=== PATIENT | female | born 1960 | race Caucasian/White ===

== ENCOUNTER → 2019-10-06 11:13 | Outpatient (BNVA) | payer MEDICARE, MEDICAID, SELFPAY | PROVIDERS: Family Provider Internal Medicine Medical Oncology; PCP Registered Nurse; Visit Provider Registered Nurse | DX: E03.9 Hypothyroidism, unspecified (principal); E78.5 Hyperlipidemia, unspecified; B37.2 Candidiasis of skin and nail; Z79.1 Long term (current) use of non-steroidal anti-inflammatories (NSAID); J41.0 Simple chronic bronchitis | CPT/HCPCS: 80053; 80061; 84443; 85025 ==

== ENCOUNTER → 2020-04-08 09:36 | Outpatient (BNVA) | payer MEDICARE, MEDICAID, SELFPAY | PROVIDERS: Family Provider Internal Medicine Medical Oncology; PCP Registered Nurse; Visit Provider Registered Nurse | DX: Z85.44 Personal history of malignant neoplasm of other female genital organs (principal); E03.9 Hypothyroidism, unspecified | CPT/HCPCS: 80053; 84443 ==

== ENCOUNTER 2020-10-15 18:23 | Emergency (ER) | payer MEDICARE, MEDICAID, SELFPAY ==
[2020-10-15 18:57] VITALS: BP 135/84; PULSE 81; RESP 18; TEMP 36.6; O2SAT 96; BMI 31.2
--- NOTE | 2020-10-15 20:20 | W.ED.ANIMALB ---
HPI - Animal Bite General: Chief Complaint: Animal Bite Stated Complaint: dog bite Time Seen by Provider: 10/15/20 19:42 History of Present Illness: HPI narrative: Patient is a 60-year-old female comes to the ED with a dog bite to her right hand. Patient says she was trying to put chain collar on one of her own outdoor dogs while he was eating food and he bit her on the right hand. She states that the dog has not been vaccinated for rabies. She says dog has not had any aggressive behavior to humans and states that this was the first time the dog has bit anyone. Patient says she immediately rinsed it and bandaged her right hand up. Dog bite is located on the dorsal aspect of hand and the thenar region. She states bleeding is well controlled. She is not in any real pain or discomfort. She has full range of motion in wrist and hand with just some mild pain. Patient states she is not up-to-date on her tetanus and would need that today. Associated symptoms: Deny chills, fever(s) or headache(s) Review of Systems Const: Denies: fever(s), chills or fatigue Eyes: Denies: change in vision or eye discomfort ENMT: Denies: throat pain, odynophagia, nasal discharge or nasal congestion Card: Denies: chest pain, palpitations, edema, swelling of feet/ankles, dyspnea on exertion or orthopnea Resp: Denies: dyspnea, productive cough or non-productive cough GI: Denies: abdominal pain, nausea, vomiting, diarrhea, constipation or hematochezia : Denies: flank pain, dysuria or hematuria Musc: Denies: neck pain, back pain or extremity swelling Skin/Breast: Reports: new lesions (dog big to right hand); Denies: rash Neuro: Denies: headache(s), numbness in extremities or weakness in extremities PFSH ED PFSH: Medical History History of cancer of vagina in adulthood Surgical History Hx of lymph node excision x3 in vaginal area. 2013 Social History Smoking and tobacco status: current every day smoker cigarettes Packs smoked per day: 1 Alcohol intake: never Lives independently: Yes Marital status: / Current occupational status: unemployed Current gender identity: Male Physical Exam Const: COMMON NORMALS: no acute distress, patient oriented x3 and alert GENERAL APPEARANCE: cooperative and comfortable HENMT: COMMON NORMALS: normocephalic HEAD & SCALP: normocephalic MOUTH: Normal oral and palatal mucosa present THROAT: posterior oropharynx normal and uvula midline Neck/C-Spine: COMMON NORMALS: supple GENERAL: Yes normal visual inspection Resp: COMMON NORMALS: normal respiratory effort, No retractions, No use of accessory muscles and clear to auscultation bilaterally AUSCULTATION: clear to auscultation bilaterally Cardio: COMMON NORMALS: regular rate, regular rhythm, S1 normal heart sound present, S2 normal heart sound present, No gallops present (Cardio), No clicks present (Cardio), No murmurs present (Cardio) and Peripheral pulses 2+ throughout RATE: regular rate RHYTHM: regular rhythm HEART SOUNDS: S1 normal heart sound present and S2 normal heart sound present PERIPHERAL PULSES: Peripheral pulses 2+ throughout GI: COMMON NORMALS: Normal to inspection, nondistended, normoactive bowel sounds present, Soft to palpation, non-tender and no masses PALPATION: Yes Soft to palpation : COMMON NORMALS: Yes no CVA tenderness BLADDER/KIDNEY EXAM: Yes no CVA tenderness Back/Pelvis: COMMON NORMALS: no CVA tenderness Extremity: COMMON NORMALS: full ROM NARRATIVE EXTREMITY EXAM: 2 small puncture wounds to right thenar region. They appear superficial and no closure with suture needed. Patient has full range of motion and right hand and fingers. GENERAL: Yes normal exam except as noted Neuro: COMMON NORMALS: patient oriented x3 and moves all extremities SENSORIUM/ORIENTATION: Yes alert Skin: NARRATIVE SKIN EXAM: 2 small puncture wounds to right thenar region. They appear superficial and no closure with suture needed. Course ED course: Dog bite region was irrigated with normal saline, cleaned, triple antibiotic ointment administered and bandage applied by nurse. Vital Signs: Vital signs: Vital Signs Temperature 97.8 F 10/15/20 18:57 Pulse Rate 77 10/15/20 21:51 Respiratory Rate 18 10/15/20 21:51 Blood Pressure 130/70 10/15/20 21:51 Pulse Oximetry 99 10/15/20 21:51 MDM - Animal Bite MDM Narrative: Medical decision making narrative: Patient is a 60-year-old female comes to the ED with dog bite to right hand. Patient owns the dog that bit her and says she would like to take dog to animal senior care for to be screened for rabies. Dog bite on right hand is superficial near the thenar region and patient has full range of motion and right hand and is neurovascular tact. She was given updated tetanus while here in the ED along with Augmentin. Nurse cleaned dog bite apply triple antibiotic ointment and bandage placed on right hand. Patient was discharged home with a prescription for Augmentin and told to return to the ED in 24 to 48 hours if she changes her mind and wants to get the rabies vaccination series. Patient understood with plan. Discharge Plan Discharge Patient Disposition: Home Clinical Impression: Dog bite Qualifiers: Encounter type: initial encounter Qualified Code(s): W54.0XXA - Bitten by dog, initial encounter Condition: Stable Prescriptions: New amoxicillin-pot clavulanate 500-125 mg tablet 1 tab PO BID 7 Days Qty: 14 RF: 0 No Action meloxicam [Mobic] 15 mg tablet 15 mg PO ONCE RF: 0 (DME) oxygen-air delivery systems Device See Rx Instructions .ROUTE .MEDSUPPLY Qty: 1 RF: 0 milk thistle 150 mg capsule 150 mg PO BID RF: 0 omega-3 fatty acids [Fish Oil Concentrate] 1,000 mg capsule 1,000 mg PO ONCE RF: 0 coenzyme [id number] 100-100 mg-unit capsule PO RF: 0 nystatin 100,000 unit/gram powder 1 applic TOPICAL TID PRN (Reason: rash) Qty: 60 RF: 6 albuterol sulfate 2.5 mg /3 mL (0.083 %) solution for nebulization 2.5 mg INHALATION TID Qty: 100 RF: 0 albuterol sulfate 90 mcg/actuation HFA aerosol inhaler See Rx Instructions .ROUTE .COMPLEX Qty: 18 RF: 0 umeclidinium-vilanterol [Anoro Ellipta] 62.5-25 mcg/actuation blister with device See Rx Instructions .ROUTE .COMPLEX Qty: 60 RF: 0 levothyroxine 137 mcg capsule 137 mcg PO DAILY Qty: 90 RF: 0 Discharge Orders: Discharge ED (Routine); Ordered 10/15/20 Ordered By: Rex Chow Referrals: Nuria Go FNP [Primary Care Provider] - Discharge Diet: Regular Discharge Activity: Resume usual activity Patient Instructions: Animal Bite (ED), Rabies (ED) Activity Restrictions/Additional Instructions: Follow-up with medical provider as directed in 7 to 10 days for reevaluation. Make sure to quarantine dog and take it to animal control for them to monitor dog for signs of rabies. If you are unable to do this within the next 24 to 48 hours return to ED to start rabies vaccination series. Take medications as prescribed. Keep dog bite area clean and bandaged daily. Return to the ER or your medical provider if condition worsens. Please read and understand discharge instructions. Thank you for choosing [facility] for your healthcare needs today. Please realize this is an emergency room and that we are providing you with a medical screening exam and this may not be complete and all inclusive of all the testing and or work up that you may need to determine your ailment or severity of your illness. It is very important that you follow up as instructed or that you return to the Emergency Department should you have concerns or if your condition changes or worsens in any way. Coding Level of Care Code ED Client [employer] Specialist for Jaylen Fwirish Exam Comprehensive
[2020-10-15] MEDS: amoxicillin-clav 500-125 mg Tablet 1 TAB PO (21:48)
[2020-10-15] MEDS: tetanus-dipt-pertussis 0.5 mL SDV IM (21:48)
[2020-10-15] MEDS: neomycin-poly-bacitracin oint 0.9 gm Pkt 1 APPLIC TOPICAL (21:48)
[2020-10-15 21:51] VITALS: BP 130/70; PULSE 77; RESP 18; O2SAT 99
== END 2020-10-15 21:52 | disposition home or self-care (01) ==
PROVIDERS: Emergency Provider Physician Assistant; PCP Registered Nurse
DX: S61.451A Open bite of right hand, initial encounter (principal); W54.0XXA Bitten by dog, initial encounter; Z85.44 Personal history of malignant neoplasm of other female genital organs; F17.210 Nicotine dependence, cigarettes, uncomplicated; Z23 Encounter for immunization
CPT/HCPCS: 90471; 90715; 99283

== ENCOUNTER → 2021-02-04 10:06 | Outpatient (BNVA) | payer MEDICARE, MEDICAID, SELFPAY | PROVIDERS: PCP Registered Nurse; Visit Provider Registered Nurse | DX: E03.9 Hypothyroidism, unspecified (principal) | CPT/HCPCS: 80053; 84443 ==

== ENCOUNTER 2021-03-25 14:50 | Outpatient (CLI) | payer MEDICARE, MEDICAID, SELFPAY ==
--- NOTE | 2021-03-25 15:00 | MM_ITS ---
WS: [id number] BILATERAL DIGITAL SCREENING MAMMOGRAPHY WITH CAD CLINICAL INFORMATION: Z12.31 - Encounter for screening mammogram for malignant ... HISTORY: Screening mammogram. No current complaints. COMPARISON: . TECHNIQUE: Bilateral CC and MLO views. FINDINGS: Scattered fibroglandular densities bilaterally. Benign punctate and lucent centered calcifications. N o suspicious focal mass, asymmetry, calcifications, or architectural distortion. No evidence of malig ariel. MM/[place] [id number] IMPRESSION: BI-RADS: 2-Benign FOLLOW UP: 1 Year Follow-up Recommend return to annual screening mammography.
--- NOTE | 2021-03-25 15:37 | XR_ITS ---
WS: [id number] DEXA (DUAL ENERGY X-RAY ABSORPTIOMETRY) Bone mineral density was performed using a [employer] machine. HISTORY: M81.0 - Age-related osteoporosis without current pathology. COMPARISON: None available. Lumbar spine BMD (L1-L4): 0.933 g/cm2 T score: -2.1 Z score: -1.2 Total hip BMD: Left: 0.997 g/cm2. T score: -0.1 Z score: 0.6 Right: 0.968 g/cm2. T score: -0.3 Z score: 0.3 10 year probability of a major osteoporotic fracture is 7%. XR/XR DEXA axial skeleton* [id number] IMPRESSION: OSTEOPENIA based upon the WHO classification for females.
== END 2021-03-25 14:51 | disposition home or self-care (01) ==
LOC: RADSHAW 14:52
PROVIDERS: PCP Registered Nurse; Visit Provider Registered Nurse
DX: Z12.31 Encounter for screening mammogram for malignant neoplasm of breast (principal); M81.0 Age-related osteoporosis without current pathological fracture; M85.80 Other specified disorders of bone density and structure, unspecified site
CPT/HCPCS: 77067; 77080

== ENCOUNTER → 2021-04-30 11:41 | Outpatient (BNVA) | payer MEDICARE, MEDICAID, SELFPAY | PROVIDERS: PCP Registered Nurse; Visit Provider Registered Nurse | DX: E03.9 Hypothyroidism, unspecified (principal) | CPT/HCPCS: 84443 ==

== ENCOUNTER 2021-05-07 14:37 | Outpatient (CLI) | payer MEDICARE, MEDICAID, SELFPAY ==
[2021-05-07 15:09] LABS: Basophils % 0.3 %; Eosinophils # 0.1 10^3/uL (0.0-0.8); Eosinophils % 1.6 %; Hematocrit 43.6 % (37.0-47.0); Hemoglobin 15.1 g/dL (11.5-15.3); Lymphocytes # 2.3 10^3/uL (0.8-4.8); Mean Corpuscular HGB Conc 34.6 g/dL (30.0-36.0); Mean Corpuscular Hemoglobin 34.6 pg (28.0-34.0); Mean Platelet Volume 10.3 fL (7.4-10.4); Monocytes # 0.5 10^3/uL (0.2-0.9); Monocytes % 7.9 %; Neutrophils # 3.32 10^3/uL (1.8-7.7); Neutrophils % 53.2 %; Nucleated Red Blood Cells % 0 %; Platelet Count 216 10^3/cmm (130-400); Red Blood Count 4.36 10^6/uL (4.1-5.3); Red Cell Distribution Width 12.4 % (12.1-15.1); White Blood Count 6.2 10^3/uL (4.0-10.0)
[2021-05-07 15:40] LABS: Alanine Aminotransferase 14 U/L (0-33); Albumin Level 3.9 g/dL (3.5-5.2); Alkaline Phosphatase 81 IU/L (35-105); Aspartate Amino Transferase 17 U/L (0-32); Blood Urea Nitrogen 10 mg/dL (6-20); Calcium 8.8 mg/dL (8.5-10.5); Carbon Dioxide 25 mmol/L (22-29); Chloride 102 mmol/L (98-107); Globulin 3.1 g/dL (1.3-4.6); Glomerular Filtration Rate 56.7 mL/min (90-130); Glucose 109 mg/dL (65-115); Osmolality Calculated 294 mOsm/kg (285-295); Sodium 142 mmol/L (136-145); Total Bilirubin 0.2 mg/dL (0.15-1.2)
[2021-05-07 18:44] LABS: 25 Hydroxy Vitamin D 34 ng/mL (30-100)
--- NOTE | 2021-05-11 11:42 | ONC FU_ITS ---
Dr. Moyer Patient Follow-Up Note Patient: Magalis Yanes Unit #: [id number]: 1960 Dicatated By: Allen Moyer M.D.Date of Visit:May 07, 2021 Onc Med Follow-up/Prog Note Chief Complaint: Vaginal cancer. 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 She had presented with vaginal symptoms and was found on transvaginal pelvic ultrasound in June 2012 to have heterogeneous echotexture in the uterus suggesting numerous small intramural fibroids. There were no other abnormalities noted on that study. She underwent attempted D&C on 08/29/2012. She was noted to have a lesion on the posterior vagina at the introitus. Biopsy showed vaginal intraepithelial neoplasia/carcinoma in situ. On a repeat D&C with endocervical dilators on 09/26/2012 an endometrial sample was obtained, and pathology was benign. However, examination of the distal vagina showed obvious evidence of high-grade dysplasia and potential vaginal carcinoma. In addition, she was noted to have a right groin mass and cytology from a fine needle aspiration was felt to be consistent with necrotic metastasis of squamous cell carcinoma. On 09/30/2012 she underwent distal vaginectomy, cystoscopy, and right groin dissection. Pathology on the right introitus vaginal wall showed multifocal invasive well-differentiated keratinizing squamous cell carcinoma with extensive squamous cell carcinoma in situ. The largest area of invasion measured 1.1 cm with a depth of invasion of 1 mm. Invasive carcinoma was present at the 5 to 6:00 side margin. All other margins were involved by squamous cell carcinoma in situ. The other portion of the specimen, which included the distal posterior vaginal wall also showed multifocal invasive well-differentiated squamous cell carcinoma with extensive squamous cell carcinoma in situ. The largest area invasion measured 6 mm in short depth of 3.75 mm. There are squamous cell carcinoma in situ involving all resection margins. The right groin dissection revealed metastatic keratinizing squamous cell carcinoma involving one of 3 lymph nodes. The metastasis measured 5 cm in diameter. She received postoperative treatment with radiation and concurrent chemotherapy with weekly cisplatin. She received her 6th weekly dose of cisplatin on 12/25/2012. Radiation was completed on 01/20/2013 to a total dose of 6000 cGy. She then underwent HDR brachytherapy to a total dose of 18 Gy, which she completed on 03/14/2013. During subsequent followup she developed facial swelling which clinically appeared suspicious for superior vena cava obstruction, though it was not confirmed with CT scan. The swelling did improve following removal of her Portacath in January 2014. She was then followed on observation for the vaginal cancer. Her other medical illnesses have been limited to asthma/COPD, hypothyroidism, and degenerative arthritis. She also has a history of hypoglycemia. INTERIM HISTORY: Surveillance CT abdomen/pelvis on 08/10/2016 showed no evidence of recurrent neoplasm. She continued on expectant management. She is seen for a follow-up visit. She has been feeling pretty good generally. She does have limited activity, mainly due to back pain. Her ECOG score is 1. She has good appetite. She has no fever, night sweats, or hot flashes. She recently required antibiotic therapy for a sinus infection. She still has a little cough. She has some shortness of breath, but she says her breathing is pretty good. She does not complain of chest pain. She has a little bit of heartburn. She has no other GI complaints. She has occasional bladder incontinence. She has chronic back pain. She also sometimes has pain in her neck and she has some arthritis in her knees. She sometimes has headache. She does not complain of headache. She has no numbness/paresthesia or other focal neurologic symptoms. Medications: Albuterol Sulfate Aerosol Powder, Breath Activated Inhalation, Bilberry Plus Lutein 1 (5-1000 mcg-mg) Capsule Oral daily, [place] 1 (550 mg) Capsule Oral daily, Meloxicam 1 (15 mg) Tablet Oral at bedtime, ProAir HFA 1 (108 (90 base) mcg/act) Aerosol, solution Inhalation daily PRN, Synthroid 1 (150 mcg) Tablet Oral daily Allergies: Hydrocodone and Sudafed Cold-Allergy. Vital Signs: Performed on May 07, 2021 16:23 Height - 59.00 in Weight - 173.2 lbs (HIGH) BSA - 1.73 sq.m BMI - 34.98 (HIGH) Temperature - 96.8 F (LOW) Pulse - 92 /min Respiration - 16 /min BP - 139/84 mm(hg) O2 Sat - 96 % Pain - 0 Fatigue - 0 Physical Examination: Constitutional - She looks pretty good generally, Eyes - Sclerae nonicteric. Conjunctivae clear, ENMT - There are no lesions noted in the oral cavity, Hematologic/Lymphatic - No cervical, clavicular, or axillary adenopathy, Respiratory - Lungs sound clear with diminished air movement bilaterally, Cardiovascular - Heart rhythm is regular. There is no murmur, gallop, or rub noted, Abdomen - Soft. Liver and spleen are not enlarged. There is no abdominal mass or ascites noted and there is no inguinal adenopathy, Extremities - No edema, Neurologic - No focal neurologic deficits noted. Lab/Imaging: Test performed on May 07, 2021 14:50 Vitamin D (25-Hydroxy), Total 34 ng/mL WBC 6.2 10 3/uL RBC 4.36 10 6/uL HGB 15.1 g/dL HCT 43.6 % MCV 100.0 fl MCH 34.6 pg MCHC 34.6 g/dL RDW 12.4 % Platelet Count 216 10 3/cmm MPV 10.3 fL Neutrophils 3.32 10 3/uL Lymphocytes 2.3 10 3/uL Monocytes 0.5 10 3/uL Eosinophils 0.1 10 3/uL Basophils 0.0 10 3/uL Neutrophil % 53.2 % Lymphocyte % 37.0 % Monocyte % 7.9 % Eosinophil % 1.6 % Basophils % 0.3 % NRBC % 0 % Problem List: 1. Multifocal invasive squamous cell carcinoma of the vagina, stage III (T1, N1, M0). 2. Asthma/COPD. 3. Hypothyroidism. 4. Degenerative arthritis. 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 She underwent distal vaginectomy and right groin dissection on 09/30/2012 with invasive carcinoma present at the 5 to 6:00 side margin of the right introitus vaginal wall specimen and extensive involvement of all margins with squamous cell carcinoma in situ. She was given postoperative chemoradiation, completed in December 2012 to a total radiation dose of 6000 cGy. She underwent HDR implant in February 2013. She was then followed on observation/expectant management. In August 2013 she had presented with clinical findings which were suspicious for SVC obstruction. I was not able to confirm that with CT scan, but the swelling did improve following removal of her portacath venous access device. During follow-up she has had somewhat limited activity due to fatigue and to chronic back pain. Overall, though, she has been doing well clinically. Thus far there has been no evidence of recurrence of the vaginal cancer. She will now continue regular follow-up with Gareth Go. I will see her again only as needed. Signed By: Allen Moyer M.D. <<Signature on File>>
== END 2021-05-07 14:38 | disposition home or self-care (01) ==
LOC: ONCMED 14:39
PROVIDERS: PCP Registered Nurse; Visit Provider Internal Medicine Medical Oncology
DX: Z85.44 Personal history of malignant neoplasm of other female genital organs (principal); J44.9 Chronic obstructive pulmonary disease, unspecified; E03.9 Hypothyroidism, unspecified; Z79.899 Other long term (current) drug therapy
CPT/HCPCS: 36415; 80053; 82306; 85025; 99214

== ENCOUNTER → 2021-07-03 14:43 | Outpatient (BNVA) | payer MEDICARE, MEDICAID, SELFPAY | PROVIDERS: PCP Registered Nurse; Visit Provider Registered Nurse | DX: E03.9 Hypothyroidism, unspecified (principal); J41.0 Simple chronic bronchitis; H60.91 Unspecified otitis externa, right ear | CPT/HCPCS: 84443 ==

== ENCOUNTER → 2021-11-05 10:29 | Outpatient (BNVA) | payer MEDICARE, MEDICAID, SELFPAY | PROVIDERS: PCP Registered Nurse; Visit Provider Registered Nurse | DX: J41.0 Simple chronic bronchitis (principal); E03.9 Hypothyroidism, unspecified | CPT/HCPCS: 80053; 84443 ==

== ENCOUNTER → 2022-04-01 11:27 | Outpatient (BNVA) | payer MEDICARE, MEDICAID, SELFPAY | PROVIDERS: PCP Registered Nurse; Visit Provider Registered Nurse | DX: M81.8 Other osteoporosis without current pathological fracture (principal); E03.9 Hypothyroidism, unspecified; J44.9 Chronic obstructive pulmonary disease, unspecified; Z79.1 Long term (current) use of non-steroidal anti-inflammatories (NSAID) | CPT/HCPCS: 80053; 80061; 84443; 85025 ==

== ENCOUNTER → 2022-07-01 10:39 | Outpatient (BNVA) | payer MEDICARE, MEDICAID, SELFPAY | PROVIDERS: PCP Registered Nurse; Visit Provider Registered Nurse | DX: E03.9 Hypothyroidism, unspecified (principal) | CPT/HCPCS: 84443 ==

== ENCOUNTER → 2022-09-16 09:43 | Outpatient (BNVA) | payer MEDICARE, MEDICAID, SELFPAY | PROVIDERS: PCP Registered Nurse; Visit Provider Registered Nurse | DX: Z00.00 Encounter for general adult medical examination without abnormal findings (principal); Z79.1 Long term (current) use of non-steroidal anti-inflammatories (NSAID) | CPT/HCPCS: 80053; 80061; 85025 ==

== ENCOUNTER 2022-10-02 09:22 | Outpatient (CLI) | payer MEDICARE, MEDICAID, SELFPAY ==
--- NOTE | 2022-10-02 09:30 | CT_ITS ---
WS: [id number] LDCT LUNG CANCER SCREENING HISTORY: Lung screening. Nicotine dependence. TECHNIQUE: Axial imaging performed from the apices to 1 cm below the costophrenic angles. Coronal and sagittal reformats are submitted with axial MIP series. All CT scans at [facility] use at least one of these dose optimization techniques: automated exposure control; mA and/or kV adjustment per patient size (includes targeted exams where dose is matched to clinical indication); or iterativ e reconstruction. DLP: 66.42 mGy.cm DIvol: Mean CTDIvol: 1.40 (mGy) COMPARISON: 09/20/2013 Diagnostic quality: Satisfactory Lungs: Mild hyperexpansion. Peripheral interstitial thickening. No pulmonary mass, nodule or pneumoni a. No endobronchial lesions. Heart: Normal size heart with no pericardial effusion.. Other findings: Very mild atherosclerosis aorta. Normal size pulmonary artery. No adenopathy. No salima cardial or pleural effusions. Small hiatal hernia. CT/CT lung screening [id number] IMPRESSION: LUNG-RADS: 1-Negative FOLLOW UP: 12 Month: Continue annual screening with LDCT OTHER FINDINGS (S MODIFIER): None.
--- NOTE | 2022-10-02 09:31 | MM_ITS ---
WS: [id number] Bilateral screening 3D tomosynthesis digital mammogram, 10/02/2022 Clinical Data: SCREEN Comparison: 03/25/2021, 10/23/2016, 09/23/2015, 09/18/2014, 09/15/2013, 08/25/2012, 08/08/2012, 04/29/2004. Findings: The breast parenchymal pattern shows fibroglandular tissue. No spiculated masses or clustered calcifi cations are seen. There are no secondary signs of carcinoma. MM/[place] [id number] Impression: 1. Negative bilateral mammogram unchanged. 2. Recommend annual screening mammograms. BIRADS: 1-Negative FOLLOW UP: 1 Year Follow-up The CAD controlled area checker was used.
== END 2022-10-02 09:23 | disposition home or self-care (01) ==
PROVIDERS: PCP Registered Nurse; Visit Provider Registered Nurse
DX: Z12.31 Encounter for screening mammogram for malignant neoplasm of breast (principal); Z12.2 Encounter for screening for malignant neoplasm of respiratory organs
CPT/HCPCS: 71271; 77063; 77067

== ENCOUNTER → 2022-12-16 11:46 | Outpatient (BNVA) | payer OTHER, MEDICAID, SELFPAY | PROVIDERS: PCP Registered Nurse; Visit Provider Registered Nurse | DX: E03.9 Hypothyroidism, unspecified (principal) | CPT/HCPCS: 80053; 84443 ==

== ENCOUNTER → 2023-03-17 11:27 | Outpatient (BNVA) | payer OTHER, MEDICAID, SELFPAY | PROVIDERS: PCP Registered Nurse; Visit Provider Registered Nurse | DX: E03.9 Hypothyroidism, unspecified (principal) | CPT/HCPCS: 84443 ==

== ENCOUNTER → 2023-06-30 10:33 | Outpatient (BNVA) | payer OTHER, MEDICAID, SELFPAY | PROVIDERS: PCP Registered Nurse; Visit Provider Registered Nurse | DX: E03.9 Hypothyroidism, unspecified (principal) | CPT/HCPCS: 84443 ==

== ENCOUNTER → 2023-09-22 10:13 | Outpatient (BNVA) | payer OTHER, MEDICAID, SELFPAY | PROVIDERS: PCP Registered Nurse; Visit Provider Registered Nurse | DX: Z13.1 Encounter for screening for diabetes mellitus (principal); Z11.59 Encounter for screening for other viral diseases; Z11.4 Encounter for screening for human immunodeficiency virus [HIV]; E03.9 Hypothyroidism, unspecified | CPT/HCPCS: 80053; 83036; 84443; 85025; 86803; 87806 ==

== ENCOUNTER 2023-10-04 13:06 | Outpatient (CLI) | payer MEDICARE, MEDICAID, SELFPAY ==
--- NOTE | 2023-10-04 13:30 | USCV_ITS ---
Bradyanu Magalis Age: 63 Gender: F : 1960 Exam Date: 10/04/2023 13:30 Ordering Phys: Nuria Go [employer]INTENA[employer] MECHANIC Technologist: CT Exam Location: [facility] Indication: Risk Factors: Previous Vascular Surgery: Right Brachial BP: / Left Brachial BP: / Right Left Velocity (cm/s) Spectral Plaque Velocity (cm/s) Spectral Plaque Syst/Diast Broadening Syst/Diast Broadening 66.50/ 9.60 Prox CCA 105.70/ 19.90 79.50/ 12.70 Mid CCA 85.60 / 18.10 113.00/19.40 Distal CCA 78.30 / 19.90 47.60/ 10.10 Prox ICA 76.20 / 18.90 61.60/ 15.60 Mid ICA 92.10 / 30.10 91.30/ 21.60 Distal ICA 100.10/ 28.50 130.50 ECA 112.80 0.80 ICA/CCA 1.30 Antegrade Vertebral Antegrade 62.90/ 15.00 cm/s 32.30/ 13.20 cm/s Bi Subclavian Bi 112.2 195.6 0 0 CONCLUSIONS Right ICA stenosis <50%. Left ICA stenosis <50%. Normal antegrade Doppler flow noted in the right vertebral artery. Normal antegrade Doppler flow noted in the left vertebral artery. Cody Devine MD (Electronically Signed) Final Date: 04 Oct 2023 15:48 S
--- NOTE | 2023-10-04 14:15 | CT_ITS ---
WS: [id number] LDCT LUNG CANCER SCREENING TECHNIQUE: Noncontrast CT of the chest with coronal and sagittal reformatted images. CLINICAL INFORMATION: R91.8 - Other nonspecific abnormal finding of lung field COMPARISON: CT 10/02/2022 DLP: 72.00 mGy.cm DIvol: Mean CTDIvol: 1.50 (mGy) All CT scans at [facility] use at least one of these dose optimization techniques: automat ed exposure control; mA and/or kV adjustment per patient size (includes targeted exams where dose is matched to clinical indication); or iterative reconstruction. FINDINGS: Aortic calcification. Coronary calcification. Normal caliber thoracic aorta. No mediastinal or hilar lymphadenopathy. Adrenal glands are normal. Normal GE junction. Mild thoracic curve. Mild thoracic kyphosis. No acute pulmonary infiltrates. No suspicious pulmonary parenchymal opacities. No other suspicious findings. CT/CT lung screening [id number] IMPRESSION: LUNG-RADS: 1-Negative FOLLOW UP: 12 Month: Continue annual screening with LDCT
--- NOTE | 2023-10-04 14:30 | XR_ITS ---
WS: [id number] SCREENING DEXA SCAN LFS ([employer]) CLINICAL INFORMATION: M81.8 - Other osteoporosis without current pathological f... COMPARISON: 2020 FINDINGS: The L1-L4 bone mineral density measures 0.955 g/cm2. This corresponds to a T score score of -1.9 and Z score of -1.1. Left femoral neck bone mineral density measures 1.009 g/cm2. This corresponds to a T score of 0.0 and Z score of 0.6. Right femoral neck bone mineral density measures 0.974 g/cm2. This corresponds to a T score -0.3of an d Z score of 0.4. Mean femoral neck bone mineral density measures 0.992 g/cm2. This corresponds to a T score of -0.1 an d Z score of 0.5. XR/XR DEXA axial skeleton* [id number] IMPRESSION: Osteopenia lumbar spine. Normal bone mineralization femoral necks. Patient's FRAX calculated 10 year probability for major osteoporotic fracture i s 13.1% and osteoporotic hip fracture is 1.9%. Bone mineral density lumbar spine increased 2.4% Bone mineral density femoral necks increased 0.9%
== END 2023-10-04 13:07 | disposition home or self-care (01) ==
LOC: RAD 13:07
PROVIDERS: PCP Registered Nurse; Visit Provider Registered Nurse
DX: Z12.2 Encounter for screening for malignant neoplasm of respiratory organs (principal); Z13.6 Encounter for screening for cardiovascular disorders; R91.8 Other nonspecific abnormal finding of lung field; F17.210 Nicotine dependence, cigarettes, uncomplicated; M81.8 Other osteoporosis without current pathological fracture; M85.88 Other specified disorders of bone density and structure, other site; I70.0 Atherosclerosis of aorta; M40.294 Other kyphosis, thoracic region; I65.23 Occlusion and stenosis of bilateral carotid arteries
CPT/HCPCS: 71271; 77080; 93880

== ENCOUNTER 2023-11-10 10:56 | Outpatient (CLI) | payer MEDICARE, MEDICAID, SELFPAY ==
--- NOTE | 2023-11-10 11:00 | MM_ITS ---
WS: [id number] VIEWS: MLO and CC views both breasts. 3D digital tomosynthesis is also included in this exam. Comparison made with prior exam of 08/09/2012, 09/15/2013, 09/18/2014, 09/23/2015, 10/23/2016, 03/25/2021, 04/2023,. Findings: There was no sign of mass, architectural distortion or suspicious calcification in either breast. The breasts are heterogeneously dense which may obscure small masses. MM/[place] [id number] Impression: BI-RADS: 1-Negative FOLLOW-UP: 1 Year Follow-up This mammogram was also analyzed by the Computer Aided Detection System [employer] Imag e Information Services Manager.
== END 2023-11-10 10:57 | disposition home or self-care (01) ==
LOC: MOBLMAM 11:10
PROVIDERS: PCP Registered Nurse; Visit Provider Registered Nurse
DX: Z12.31 Encounter for screening mammogram for malignant neoplasm of breast (principal)
CPT/HCPCS: 77063; 77067

== ENCOUNTER 2023-12-20 08:30 | Outpatient (CLI) | payer MEDICARE, MEDICAID, SELFPAY | END 2023-12-20 08:31 | disposition home or self-care (01) | LOC: SLEEP 08:32 | PROVIDERS: PCP Registered Nurse; Visit Provider Registered Nurse | DX: Z99.81 Dependence on supplemental oxygen (principal); J41.0 Simple chronic bronchitis | CPT/HCPCS: 94762 ==

== ENCOUNTER → 2024-07-03 09:53 | Outpatient (BNVA) | payer MEDICARE, MEDICAID, SELFPAY | PROVIDERS: PCP Registered Nurse; Visit Provider Registered Nurse | DX: E03.9 Hypothyroidism, unspecified (principal); M54.59 Other low back pain; Z79.1 Long term (current) use of non-steroidal anti-inflammatories (NSAID); J06.9 Acute upper respiratory infection, unspecified | CPT/HCPCS: 80053; 80061; 84443; 85025 ==

== ENCOUNTER → 2024-10-03 10:55 | Outpatient (BNVA) | payer MEDICARE, MEDICAID, SELFPAY | PROVIDERS: PCP Registered Nurse; Visit Provider Registered Nurse | DX: E03.9 Hypothyroidism, unspecified (principal); E07.9 Disorder of thyroid, unspecified | CPT/HCPCS: 84443 ==

== ENCOUNTER 2024-10-27 09:30 | Outpatient (CLI) | payer OTHER, MEDICAID, SELFPAY ==
--- NOTE | 2024-10-27 10:45 | CT_ITS ---
WS: [id number] LDCT LUNG CANCER SCREENING TECHNIQUE: Noncontrast CT of the chest with coronal and sagittal reformatted images. CLINICAL INFORMATION: Z87.891 - Personal history of nicotine dependence COMPARISON: 2023 DLP: 64.39 mGy.cm DIvol: Mean CTDIvol: 1.30 (mGy) All CT scans at [facility] use at least one of these dose optimization techniques: automated exposure control; mA and/or kV adjustment per patient size (includes targeted exams where dose is matched to clinical indication); or iterative reconstruction. FINDINGS: No new suspicious pulmonary parenchymal abnormalities. Aortic calcification. Coronary calcification. Normal caliber thoracic aorta. No mediastinal or hilar lymphadenopathy. Adrenal glands are normal. Normal GE junction. Mild thoracic curve. Mild thoracic kyphosis. CT/CT lung screening [id number] IMPRESSION: LUNG-RADS: 1-Negative FOLLOW UP: 12 Month: Continue annual screening with LDCT
== END 2024-10-27 09:31 | disposition home or self-care (01) ==
LOC: RAD 09:34
PROVIDERS: PCP Registered Nurse; Visit Provider Registered Nurse
DX: Z12.2 Encounter for screening for malignant neoplasm of respiratory organs (principal); Z87.891 Personal history of nicotine dependence; I70.0 Atherosclerosis of aorta; I25.10 Atherosclerotic heart disease of native coronary artery without angina pectoris; M43.8X4 Other specified deforming dorsopathies, thoracic region; M40.294 Other kyphosis, thoracic region
CPT/HCPCS: 71271

== ENCOUNTER 2024-11-29 10:11 | Outpatient (CLI) | payer OTHER, MEDICAID, SELFPAY ==
--- NOTE | 2024-11-29 10:20 | MM_ITS ---
WS: [email or web address] BILATERAL 3D TOMOSYNTHESIS DIGITAL SCREENING MAMMOGRAPHY WITH CAD CLINICAL INFORMATION: Z12.39 - Encounter for other screening for malignant neop... HISTORY: Screening mammogram. No current complaints. COMPARISON: 2023 TECHNIQUE: Bilateral CC and MLO views. FINDINGS: The breasts are composed of heterogeneous fibroglandular density tissue, which can limit the detection of small underlying mass lesions. No suspicious mass, asymmetry, calcifications, or architectural distortion. No evidence of malignancy. A few incidental punctate and lucent centered calcifications. V ascular calcification. MM/MM [facility] tomosynthesis [id number] IMPRESSION: DENSITY: The breasts are heterogeneously dense, which may obscure small masses. BI-RADS: 2 - Benign FOLLOW UP: 1 Year Follow-up Recommend return to annual screening mammography.
== END 2024-11-29 10:12 | disposition home or self-care (01) ==
PROVIDERS: PCP Registered Nurse; Visit Provider Registered Nurse
DX: Z12.31 Encounter for screening mammogram for malignant neoplasm of breast (principal); R92.323 Mammographic fibroglandular density, bilateral breasts; R92.1 Mammographic calcification found on diagnostic imaging of breast
CPT/HCPCS: 77063; 77067

== ENCOUNTER 2025-01-01 06:55 | Outpatient (CLI) | payer OTHER, MEDICAID, SELFPAY ==
--- NOTE | 2025-01-01 07:45 | USCV_ITS ---
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: Exam Location: [facility] [place] Indication: murmur BP: 120 / 70 HR: 71 Rhythm: Sinus Technical Quality: Adequate MEASUREMENTS (Male / Female) Normal Values 2D ECHO LV Diastolic Diameter PLAX 4.4 cm 4.2 - 5.9 / 3.9 - 5.3 cm IVS Diastolic Thickness 1.3 cm 0.6 - 1.0 / 0.6 - 0.9 cm IVS Systolic Thickness 1.6 cm LVPW Diastolic Thickness 1.2 cm 0.6 - 1.0 / 0.6 - 0.9 cm LVPW Systolic Thickness 1.7 cm LVOT Diameter 2.1 cm LV Ejection Fraction 2D Teich 66.1 % LV Ejection Fraction MOD 4C 59.8 % LV Ejection Fraction MOD 2C 62.0 % LV Ejection Fraction 2C AL 63.1 % LA Diameter 3.2 cm RA Systolic Volume 4C AL 30.1 ml RA Systolic Volume 4C MOD 29.7 ml LA Sys Volume AL 56.7 cm cubed LA Sys Volume Index AL 30.3 cm cubed/m squared Aorta at Sinotubular Diameter 2.9 cm IVC Diameter 0.9 cm M-MODE LA Ao Ratio MM 1.3 AV Cusp Separation MM 1.4 cm DOPPLER AV Peak Velocity 336.7 cm/s LVOT Peak Velocity 118.0 cm/s AV Area Cont Eq vti 1.6 cm squared AV Area Cont Eq pk 1.2 cm squared MV Peak Velocity 184.0 cm/s MV Area PHT 3.2 cm squared Mitral E to A Ratio 1.1 TV Peak Velocity 232.0 cm/s TR Peak Velocity 317.0 cm/s TR Peak Gradient 40.2 mmHg TV Peak E Velocity 90.0 cm/s PV Peak Velocity 91.0 cm/s FINDINGS Left Ventricle Normal left ventricular size and systolic function, EF 63%.mild left ventricular hypertrophy. No regional wall motion abnormalities. Grade II/IV diastolic dysfunction, moderately elevated filling pressures. Right Ventricle The right ventricle is normal in size and function. Right Atrium The right atrium is normal in size. Left Atrium Mildly increased left atrial size. Mitral Valve Moderate mitral annular calcification. Aortic Valve [id number] aortic valve regurgitation. Mild aortic valve stenosis,ROBSON 1.6 cm squared. Peak velocity of 2.69 m/s with a peak gradient of 29 and a mean gradient of 14 mmHg. Tricuspid Valve Trace tricuspid valve regurgitation. Estimated pulmonary artery peak systolic pressure 43 mmHg Pulmonic Valve Pulmonic valve not well visualized. Pericardium Normal pericardium without effusion. Aorta Normal ascending aorta dimension. IVC Normal inferior vena cava. CONCLUSIONS Normal left ventricular size and systolic function, EF 63%.mild left ventricular hypertrophy. No regional wall motion abnormalities. Grade II/IV diastolic dysfunction, moderately elevated filling pressures. Mildly increased left atrial size. Moderate mitral annular calcification. Mild aortic valve stenosis,ROBSON 1.6 cm squared. Peak velocity of 2.69 m/s with a peak gradient of 29 and a mean gradient of 14 mmHg. [id number] aortic valve regurgitation. Trace tricuspid valve regurgitation. Estimated pulmonary artery peak systolic pressure 43 mmHg There is no pericardial effusion. There are no intracardiac masses. No similar previous studies are available for comparison Dr Yoli Bedoya MD [facility] (Electronically Signed) Final Date: 02 January 2025 14:39 S
--- NOTE | 2025-01-01 08:45 | USCV_ITS ---
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 cv stenosis Risk Factors: Previous Vascular Surgery: Right Brachial BP: / Left Brachial BP: / Right Left Velocity (cm/s) Spectral Plaque Velocity (cm/s) Spectral Plaque Syst/Diast Broadening Syst/Diast Broadening 84.10/ 14.10 Prox CCA 78.20 / 21.60 71.10/ 14.10 Mid CCA 78.20 / 21.60 73.70/ 10.20 Distal CCA 76.00 / 21.60 59.50/ 10.20 Prox ICA 106.50/ 28.10 68.50/ 21.90 Mid ICA 115.20/ 28.10 100.00/23.70 Distal ICA 128.30/ 28.10 72.40 ECA 84.70 1.40 ICA/CCA 1.70 Antegrade Vertebral Antegrade 71.70/ 17.20 cm/s 84.70/ 21.00 cm/s Bi Subclavian Tri 91.30 139.3 0 CONCLUSIONS Right ICA stenosis <50%. Left ICA stenosis <50%. Intimal thickening in the common carotid arteries and internal carotid arteries bilaterally. Normal antegrade Doppler flow noted in the right vertebral artery. Normal antegrade Doppler flow noted in the left vertebral artery. Cody Devine MD (Electronically Signed) Final Date: 01 January 2025 09:59 S
== END 2025-01-01 06:56 | disposition home or self-care (01) ==
LOC: RAD 06:55
PROVIDERS: PCP Registered Nurse; Visit Provider Registered Nurse
DX: I65.23 Occlusion and stenosis of bilateral carotid arteries (principal); I34.81 Nonrheumatic mitral (valve) annulus calcification; I35.2 Nonrheumatic aortic (valve) stenosis with insufficiency; R01.1 Cardiac murmur, unspecified
CPT/HCPCS: 93306; 93880

== ENCOUNTER → 2025-01-25 13:45 | Outpatient (BNVA) | payer OTHER, MEDICAID, SELFPAY | PROVIDERS: PCP Registered Nurse; Visit Provider Registered Nurse | DX: E03.9 Hypothyroidism, unspecified (principal) | CPT/HCPCS: 84439; 84443 ==

== ENCOUNTER → 2025-03-28 10:10 | Outpatient (BNVA) | payer OTHER, MEDICAID, SELFPAY | PROVIDERS: PCP Registered Nurse; Visit Provider Registered Nurse | DX: E03.9 Hypothyroidism, unspecified (principal) | CPT/HCPCS: 84443 ==